=== PATIENT | male | born 1995 | race Caucasian/White ===

== ENCOUNTER 2017-09-15 08:34 | Emergency (ER) | payer OTHER ==
--- NOTE | 2017-09-15 08:48 | EDPHY ---
H & P Source: Patient, EMS Exam Limitations: Intoxication Time Seen by Provider: 09/15/17 08:44 HPI/ROS: HPI: This is a 22-year-old male who presents with Chief Complaint: Alcohol intoxication Location: body Quality: Alcohol intoxication Duration: Several hours Signs and Symptoms: No suicidal ideation, no homicidal ideation, no hallucinations, no nausea, no vomiting, no abdominal pain, no chest pain, no shortness of breath Timing: Acute Severity: Moderate Context: Patient reports that he took the bus to his friend's house which he trusts yesterday evening around 10:00 p.m. He remembers drinking alcohol with him having 1 tablet of Xanax. EMS was called by local citizen who saw the patient sleeping at the bus stop on the bench. When EMS arrived, patient was alert and knew his name but did not know where he was. EMS reports that vital signs were stable and fingerstick was 97. EMS brought patient to [facility] emergency room for further evaluation. Patient is currently without complaints. He reports that he made a stupid decision last night drinking alcohol and taking Xanax at the same time. He denies any psychiatric history/ suicidal ideation/homicidal ideation. He is extremely worried that he will get in trouble at school and get kicked out of his program. Modifying Factors: None Comment: ROS: see HPI Constitutional: No fever, no chills, no weight loss Eyes: No blurred vision Respiratory: No shortness of breath, no cough Cardiovascular: No chest pain Gastrointestinal: No nausea, no vomiting, no diarrhea Genitourinary: No dysuria Extremities: No myalgias Neurologic: No weakness, no numbness Skin: No rashes Hematologic: No bruising, no bleeding MEDICAL/SURGICAL/SOCIAL HISTORY: Medical history: Generally healthy. Does not take any regular medications. 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 Originally from [facility]. Family history noncontributory. CONSTITUTIONAL: Patient is clearly intoxicated and smells like alcohol, tidy young adult male, polite and cooperative, awake and alert, no obvious distress HEENT: Atraumatic and normocephalic, PERRL, pupils dilated to 4 mm, EOMI. Nares patent; no rhinorrhea; no nasal mucosal edema. Tympanic membranes clear. Oropharynx clear, no exudate and moist pink mucosa. Airway patent. No lymphadenopathy. No meningismus. Cardiovascular: Normal S1/S2, mild tachycardia noted on telemetry, regular rhythm, without murmur rub or gallop. PULMONARY/CHEST: Symmetrical and nontender. Clear to auscultation bilaterally. Good air movement. No accessory muscle usage. ABDOMEN: Soft, nondistended, nontender, no rebound, no guarding, no peritoneal signs, no masses or organomegaly. No CVAT. EXTREMITIES: 2/2 pulses, strength 5/5, no deformities, no clubbing, no cyanosis or edema. NEUROLOGICAL: no focal neuro deficits. GCS 15. SKIN: Warm and dry, no erythema. no rash. Good capillary refill. (Rowena Silverman) Constitutional: Initial Vital Signs Temperature (C) 36.4 C 09/15/17 08:41 Heart Rate 102 H 09/15/17 08:41 Respiratory Rate 18 09/15/17 08:41 Blood Pressure 148/97 H 09/15/17 08:41 O2 Sat (%) 96 09/15/17 08:41 O2 Delivery Mode Room Air Allergies/Adverse Reactions: No Known Allergies Allergy (Unverified 09/15/17 08:47) Home Medications: Medication Instructions Recorded NK [No Known Home Meds] 09/15/17 Medical Decision Making ED Course/Re-evaluation: Vital signs stable upon arrival. Patient does not meet criteria for M1 hold or Detainer. He voluntarily agrees to stay in the emergency room until he is more sober. He will then be reassessed and likely be discharged home. 1220: Reassessed patient. Up ambulating in room without any ataxia and and not requiring assistance. He has called his mother who is coming to pick him up. 1445: Patient is currently calm and cooperative. Mother is on the way. This patient was seen under the supervision of my secondary supervising physician. I evaluated care for this patient independently. Discussed this patient with Dr. Sheets who did not see the patient. (Rowena Silverman) Differential Diagnosis: Altered mental status including but not limited to hypoglycemia, infectious process, electrolyte abnormality, head injury and intoxicants. (Rowena Silverman) Other Provider: I evaluated and participated in the management of the patient. I also evaluated the patient independently. My co-signature indicates that I have reviewed this chart and I agree with the findings and plan of care as documented. My personal H&P findings include: The patient presents to the ED with altered mental status after he was found confused [place] a bus station. The patient reports that he had used alcohol in reportedly taken prescription medications provided to him by a friend last night. The patient denies any complaints of trauma, fall, thoughts of self-harm, anxiety or fever. The patient is quite remorseful about ending up in the emergency department today. Physical exam General Appearance: Alcohol on breath, no acute distress Head: Normocephalic atraumatic Eyes: Pupils equal and round no pallor or injection ENT, Mouth: Mucous membranes moist Respiratory: There are no retractions, lungs are clear to auscultation Cardiovascular: Regular rate and rhythm Gastrointestinal: Abdomen is soft and nontender, no masses, bowel sounds normal Neurological: 5/5 strength all 4 extremities Skin: Warm and dry, no rashes Musculoskeletal: Neck is supple nontender Extremities: symmetrical, full range of motion ED course: Patient presents to the ED with a polysubstance ingestion including alcohol and prescription medications which resulted in confusion and altered mental status. The patient had prolonged observation in the ED in his significantly improved. I re-evaluated the patient personally at 2:00 p.m. And he is in no acute distress. The patient has contacted his mother who is coming to the emergency department to pick him up as he is unable to secure a ride back to his apartment. (Jayjay Sheets) Departure - Departure Disposition: Home, Routine, Self-Care Clinical Impression: Benzodiazepine misuse Alcohol intoxication Qualifiers: Complication of substance-induced condition: uncomplicated Qualified Code(s): F10.920 - Alcohol use, unspecified with intoxication, uncomplicated Condition: Good Instructions: Alcohol Intoxication (ED), Abuse of Alcohol (ED) Additional Instructions: Please refrain from binge drinking and drinking alcohol excessively to the point that you do not remember what happened. Do not mix alcohol with other types of drugs as it can cause sedative affects. Consume daily a minimum of 8-10 glasses of water or electrolyte fluid replacement drinks that include Gatorade, Powerade, Pedialyte. Eat a bland diet today and then slowly advance as tolerated. Referrals: PCP Not In,Dictionary [Medical Doctor] - As per Instructions
[2017-09-15 15:09] VITALS: BP 121/61
== END 2017-09-15 15:07 | disposition home or self-care (01) ==
DX: F10.920 Alcohol use, unspecified with intoxication, uncomplicated (principal); F13.259 Sedative, hypnotic or anxiolytic dependence with sedative, hypnotic or anxiolytic-induced psychotic disorder, unspecified